=== PATIENT | male | born 1970 | race Hispanic/Latino ===

== ENCOUNTER 2021-05-28 11:04 | Emergency (ER) | payer OTHER, SELFPAY ==
[2021-05-28 11:28] VITALS: BP 148/78; PULSE 80; RESP 14; TEMP 36.5; O2SAT 99; BMI 28.0
--- NOTE | 2021-05-28 11:51 | ED.GENADULT ---
HPI - General Adult General Chief complaint: Ear Stated complaint: Ear pain, sore throat Time Seen by Provider: 05/28/21 11:45 Source: patient Mode of arrival: Ambulatory Limitations: no limitations History of Present Illness HPI narrative: 51-year-old male here for evaluation of left ear pain. He states that he has noticed over the past couple days he has had increase in fullness in his left ear. No fevers. His symptoms all started with a sore throat that seems to have improved. No allergies. No trauma. Did take some ?pain killers ?prior to arrival so states that his discomfort currently is improved. Related Data Previous Rx's Medication Instructions Recorded amoxicillin 875 mg tablet 875 mg PO BID 7 Days #14 tab 05/28/21 ofloxacin 0.3 % ear drops 10 drp EAR-LEFT DAILY 7 Days #10 ml 05/28/21 Allergies Allergy/AdvReac Type Severity Reaction Status Date / Time No Known Drug Allergies Allergy Verified 05/28/21 11:33 Review of Systems Constitutional Constitutional: Reports as per HPI and Reports system reviewed and no additional complaints, except as documented ENT Ears, Nose, Mouth, and Throat: Reports system reviewed and no additional complaints, except as documented and Reports as per HPI Respiratory Respiratory: Reports as per HPI and Reports system reviewed and no additional complaints, except as documented Integumentary/Breasts Skin/Breast: Reports system reviewed and no additional complaints, except as documented and Reports as per HPI Hematologic/Lymphatic On Anticoagulants: No Patient History Medical History Patient denies medical problems Social History Smoking Status: Never smoker Smoking Status: Never smoker alcohol intake frequency: 0-2 drinks per day Substance Use Type: does not use Exam Initial Vital Signs Initial Vital Signs: Vital Signs Temperature 97.7 F 05/28/21 11:28 Pulse Rate 80 05/28/21 11:28 Respiratory Rate 14 05/28/21 11:28 Blood Pressure 148/78 H 05/28/21 11:28 Pulse Oximetry 99 05/28/21 11:28 Const General: cooperative, healthy appearing and comfortable [facility] Head: normal to inspection Ears: external ears normal, TM normal on the right, left TM abnormal (Bulging, erythematous), mastoids normal, periauricular adenopathy noted and EAC abnormal erythema on the left, edema on the left and EAC tenderness on the left; Negative for no foreign body Neck Lymphatic: No lymphadenopathy Other: Does have preauricular lymph nodes on the left Resp Effort & Inspection: normal respiratory effort Skin General: no rashes or lesions noted Neuro General: patient alert, patient awake, patient oriented x3 and moves all extremities Extrem General: normal to inspection and capillary refill normal Psych Appearance: grossly normal and well kempt Course Vital Signs Vital signs: Vital Signs - 8 hr 05/28/21 11:28 Temperature 97.7 F Pulse Rate 80 Respiratory Rate 14 Blood Pressure 148/78 H Pulse Oximetry 99 Medical Decision Making MDM Narrative Medical decision making narrative: Patient's history and physical exam is consistent with both otitis externa and also otitis media. He does have swelling of the left external auditory canal however I am able to visualize the tympanic membrane and it is also red and erythematous. He does have preauricular nodes consistent with his diagnosis. Will treat with antibiotics. He was given return precautions. He expressed understanding and agreement. Physical exam is not consistent with parotid infection. Also not consistent with mastoiditis. No signs of cellulitis. Discharge Plan Departure Patient Disposition: Home Clinical Impression: Otitis externa, Otitis media Instructions: Middle Ear Infection, DI for Otitis Externa Activity Restrictions/Additional Instructions: Use the antibiotics by mouth and the ear drops as directed. Contact your primary doctor for follow-up. Return to the emergency department for any new or worsening symptoms Prescriptions: New amoxicillin 875 mg tablet 875 mg PO BID 7 Days Qty: 14 0RF ofloxacin 0.3 % drops 10 drp EAR-LEFT DAILY 7 Days Qty: 10 0RF
== END 2021-05-28 12:00 | disposition home or self-care (01) ==
PROVIDERS: Emergency Provider Emergency Medicine
DX: H66.92 Otitis media, unspecified, left ear (principal); J02.9 Acute pharyngitis, unspecified; H60.92 Unspecified otitis externa, left ear
CPT/HCPCS: 99281